=== PATIENT | female | born 1985 ===

== ENCOUNTER 2017-06-06 15:53 | Emergency (ER) | payer SELFPAY ==
[2017-06-06 16:01] VITALS: O2SAT 99
--- NOTE | 2017-06-06 16:10 | C.PDOC ---
History Of Present Illness Patient is a 32 y/o F with hx of ovarian cysts and fibroids, with hemorrhagic cysts vs endometriomas, presenting with L sided abdominal pain with her menses. She describes the pain as crampy. She denies other discharge than the bleeding. She reports that this is similar to prior episodes. Denies taking any medication. Time Seen by Provider: 06/06/17 16:05 Chief Complaint (Nursing): Female Genitourinary Past Medical History Vital Signs: Last Vital Signs Temp 98 F 06/06/17 15:57 Pulse 89 06/06/17 15:57 Resp 18 06/06/17 15:57 BP 112/75 06/06/17 15:57 Pulse Ox 99 06/06/17 18:32 - Medical History PMH: Denies: Chronic Kidney Disease Surgical History: - [facility] Procedures EXCISION OF BILATERAL OVARIES, OPEN APPROACH (12/08/16) INJECT/INFUSE NEC (03/22/14) Family History: States: Unknown Family Hx - Social History Hx Tobacco Use: No Hx Alcohol Use: No Hx Substance Use: No - Immunization History Hx Tetanus Toxoid Vaccination: No Hx Influenza Vaccination: Yes Hx Pneumococcal Vaccination: No Review Of Systems Constitutional: Negative for: Fever, Chills Cardiovascular: Negative for: Chest Pain, Palpitations, Edema, Light Headedness Respiratory: Negative for: Cough, Shortness of Breath, SOB with Excertion, Wheezing Gastrointestinal: Negative for: Nausea, Vomiting, Diarrhea, Constipation Genitourinary: Positive for: Vaginal Bleeding, Pelvic Pain (L sided). Negative for: Dysuria, Frequency, Incontinence Skin: Negative for: Rash Physical Exam - Physical Exam Appears: Well, Non-toxic, No Acute Distress Skin: Normal Color, Warm, Dry Head: Atraumatic, Normacephalic Eye(s): bilateral: Normal Inspection, PERRL, EOMI Chest: Symmetrical Cardiovascular: Rhythm Regular Respiratory: Normal Breath Sounds Gastrointestinal/Abdominal: Soft, No Tenderness, No Mass, No Distention Back: Normal Inspection, No CVA Tenderness Pelvic: Other (deferred) Extremity: Normal ROM Neurological/Psych: Oriented x3 Gait: Steady ED Course And Treatment O2 Sat by Pulse Oximetry: 99 Medical Decision Making Medical Decision Making: Will give medication for pain, eval for and uti and get pelvic ultrasound. 5:13PM UA negative for or infection 6:20PM 1.2 cm probable fundal fibroid. Bilateral complex appearing lesions measuring approximately 1.5 cm on the right and 3.3 cm on the left. Considerations include but not limited to hemorrhagic cysts, endometriomas, dermoids. Correlate clinically. Small pelvic free fluid. 6:36PM On reevaluation abdomen continues to be soft NT/ND. Patient reports pain is resolved. Disposition - Disposition Disposition: HOME/ ROUTINE Disposition Time: 18:31 Condition: FAIR Additional Instructions: Take motrin for pain. 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 Return with any worsening symptoms. Instructions: Endometriosis (ED), Ovarian Cyst (ED) Forms: [facility] (Kiswahili) Print Language: ARABIC - Clinical Impression Clinical Impression: Hemorrhagic cyst
[2017-06-06 16:39] LABS: RBC URINE 2 /hpf (0-3); URINE BACTERIA RARE (<OCC); URINE BILIRUBIN NEGATIVE (NEGATIVE); URINE COLOR Colorless (YELLOW); URINE GLUCOSE (UA) NORMAL (Normal); URINE KETONE NEGATIVE (NEGATIVE); URINE LEUKOCYTE ESTERASE NEG Leu/uL (Negative); URINE PROTEIN NEGATIVE (NEGATIVE); URINE UROBILINOGEN NORMAL mg/dL (0.2-1.0)
[2017-06-06 16:44] LABS: URINE BLOOD 1+ (NEGATIVE)
--- NOTE | 2017-06-06 18:21 | US ---
HISTORY: hx of ovarian cysts, with L sided pain COMPARISON: Pelvic ultrasound performed 02/26/17 TECHNIQUE: Real-time transabdominal pelvic ultrasound was performed. In addition a transvaginal pelvic ultrasound was necessary to better depict pelvic anatomy. FINDINGS: UTERUS: Measures 7.7 x 4.1 x 4.5 cm. Anteverted. Probable fundal fibroid measures approximately 1.0 x 0.8 x 1.2 cm. ENDOMETRIUM: Measures 8 mm in diameter. CERVIX: No cervical abnormality identified. RIGHT OVARY: Measures 4.1 x 3.0 x 3.1 cm. Blood flow is demonstrated. 1.4 x 0.9 x 1.5 cm complex appearing right ovarian lesion with evidence of increased echogenicity. LEFT OVARY: Measures 5.2 x 4.4 x 4.9 cm. Blood flow is demonstrated. 3.3 x 2.8 x 3.1 cm complex appearing left ovarian lesion with evidence of increased echogenicity. FREE FLUID: Small pelvic free fluid. OTHER FINDINGS: None. IMPRESSION: 1.2 cm probable fundal fibroid. Bilateral complex appearing lesions measuring approximately 1.5 cm on the right and 3.3 cm on the left. Considerations include but not limited to hemorrhagic cysts, endometriomas, dermoids. Correlate clinically. Small pelvic free fluid.
[2017-06-06 18:50] VITALS: BP 117/76; PULSE 81; RESP 16; TEMP 97.6
== END 2017-06-06 18:55 | disposition home or self-care (01) ==
LOC: C.ER 15:53
DX: N83.209 Unspecified ovarian cyst, unspecified side (principal)
CPT/HCPCS: 76830; 76856; 81001; 96372; 99284; J1885

== ENCOUNTER 2018-07-20 11:26 | Emergency (ER) | payer SELFPAY ==
[2018-07-20 11:34] VITALS: RESP 18; TEMP 98.5
--- NOTE | 2018-07-20 12:26 | C.PDOC ---
History Of Present Illness 33 year old female presents to the emergency department with complaints of pain to her left upper back, radiating up the left side of her neck to the back of her head since this morning. Patient reports difficulty turning her head to the left side, due to pain. Patient reports that her job requires repetitive motions. She reports taking Tylenol for the pain with no relief. She denies weakness, numbness, or tingling. Time Seen by Provider: 07/20/18 11:47 Chief Complaint (Nursing): Back Pain History Per: Patient History/Exam Limitations: no limitations Onset/Duration Of Symptoms: Hrs Current Symptoms Are (Timing): Still Present Quality Of Discomfort: "Pain" Severity: Moderate Associated Symptoms: denies: Incontinence, New Weakness, New Numbness Exacerbating Factor(s): Turning Past Medical History Reviewed: Historical Data, Nursing Documentation, Vital Signs Vital Signs: Last Vital Signs Temp 98.5 F 07/20/18 11:33 Pulse 67 07/20/18 13:16 Resp 18 07/20/18 13:16 BP 121/73 07/20/18 13:16 Pulse Ox 97 07/20/18 13:16 - Medical History PMH: No Chronic Diseases Denies: Chronic Kidney Disease Surgical History: - [facility] Procedures EXCISION OF BILATERAL OVARIES, OPEN APPROACH (12/08/16) INJECT/INFUSE NEC (03/22/14) Family History: States: No Known Family Hx - Social History Hx Tobacco Use: No Hx Alcohol Use: No Hx Substance Use: No - Immunization History Hx Tetanus Toxoid Vaccination: No Hx Influenza Vaccination: No Hx Pneumococcal Vaccination: No Review Of Systems Cardiovascular: Negative for: Chest Pain Respiratory: Negative for: Shortness of Breath Genitourinary: Negative for: Incontinence Musculoskeletal: Positive for: Neck Pain, Back Pain. Negative for: Shoulder Pain, Arm Pain Skin: Negative for: Rash, Bruising Neurological: Negative for: Weakness, Numbness Physical Exam - Physical Exam Appears: Non-toxic, Other (uncomfortable) Skin: Warm, Dry Head: Atraumatic, Normacephalic Eye(s): bilateral: Normal Inspection Neck: Normal, Decreased ROM (secondary to pain), No Midline Cervical Tenderness, Paracervical Tenderness (left trapezius spasm, tender left paracervical area) Chest: Symmetrical, No Tenderness Cardiovascular: Rhythm Regular, No Murmur Respiratory: No Decreased Breath Sounds Back: Other (tenderness to the left trapezius, up to the insertion point at occiput. ) Extremity: Normal ROM (left uupper extremity) Extremity: Bilateral: Atraumatic, Normal Color And Temperature, Normal ROM Pulses: Left Radial: Normal Neurological/Psych: Oriented x3, Normal Speech, Normal Cognition, Normal Motor, Normal Sensation ED Course And Treatment O2 Sat by Pulse Oximetry: 99 (RA) Pulse Ox Interpretation: Normal Progress Note: Plan: Flexeril 10mg PO. Toradol 30mg IM. POC Urine Medical Decision Making Medical Decision Making: pt with left trapezius spasm and dec rom pt reports decreased pain s/p toradol and flexeril. will d/c home Disposition Counseled Patient/Family Regarding: Diagnosis, Need For Followup, Rx Given - Disposition Referrals: [facility] [Outside] Disposition: HOME/ ROUTINE Disposition Time: 13:00 Condition: IMPROVED Additional Instructions: Please take naproxen as prescribed, with food. Take muscle relaxant up to three times when not working; makes you sleepy., If working, take only at bedtime,. Warm compresses several times a day to painful area. Follow up with your doctor or in medical clinic in next few days. Return to ER for any worse symptoms,. Por favor tome naproxeno segn lo prescrito, con comida. Cole relajante muscular hasta vonnie veces cuando no est trabajando; te da sueo. Si ests trabajando, tmalo solo a la hora de dormir. Clido comprime varias veces al da en el amrik dolorida. Giovana un seguimiento con mi mdico o en devora clnica mdica en los prximos castanon. Regrese a la kirill de emergencias por cualquier sntoma peor. Prescriptions: Cyclobenzaprine [Cyclobenzaprine HCl] 10 mg PO Q8 #9 tab Naproxen 500 mg PO BID #20 tab Instructions: Muscle Spasms (DC) Forms: Gen Discharge Inst Vincentian, [employer] (Vincentian), Work Excuse Print Language: DIVEHI - Clinical Impression Clinical Impression: Trapezius muscle spasm - PA / CUSTOMER SECURITY CLERK / Resident Statement MD/DO has reviewed & agrees with the documentation as recorded. - Scribe Statement The provider has reviewed the documentation as recorded by the Scribe (Terrance Ocasio) All medical record entries made by the Scribe were at my direction and personally dictated by me. I have reviewed the chart and agree that the record accurately reflects my personal performance of the history, physical exam, medical decision making, and the department course for this patient. I have also personally directed, reviewed, and agree with the discharge instructions and disposition.
[2018-07-20 13:17] VITALS: BP 121/73; PULSE 67
[2018-07-22 20:23] VITALS: O2SAT 99
== END 2018-07-20 13:17 | disposition home or self-care (01) ==
LOC: C.ER 11:26
DX: M62.830 Muscle spasm of back (principal)
CPT/HCPCS: 96372; 99283; J1885